=== PATIENT | male | born 1965 | race Hispanic/Latino ===

== ENCOUNTER 2021-08-18 19:15 | Emergency (ER) | payer SELFPAY ==
[~2021-08-18] VITALS: Ht 180.3 cm; Wt 133.8 kg
[2021-08-18] MEDS ORDERED: HYDROCODONE/APAP 5MG-325MG TAB PO STA (19:25)
[2021-08-18] MEDS ORDERED: LIDOCAINE HCL 1% LOCAL INJ 20 ML VIAL INJ STA (19:58)
[2021-08-18] MEDS ORDERED: VICODIN HP 10-1 EAC1 PO (20:10)
[2021-08-18] MEDS ORDERED: MORPHINE SULFATE INJ 4 MG/ML INJ 1ML ONE (20:28)
[2021-08-19] MEDS ORDERED: HYDROCODON-ACE1 EAC9 PO (10:05)
== END 2021-08-18 21:22 | disposition home or self-care (01) ==
LOC: FSED 19:30
DX: S42.302A Unspecified fracture of shaft of humerus, left arm, initial encounter for closed fracture (principal); W19.XXXA Unspecified fall, initial encounter
CPT/HCPCS: 73060; 99283; J2270